=== PATIENT | male | born 1960 | race Hispanic/Latino ===

== ENCOUNTER 2018-01-14 09:37 | Inpatient (IN) | payer OTHER ==
--- OUTSIDE RECORDS SUMMARY | 2018-01-14 09:39 | XMS REPORT ---
:1960 [facility] Jelain Bradley [address] [place] [id number] Care Team Providers Name Role Phone PETRA MATA Unavailable Unavailable Problems This patient has no known problems. Allergies, Adverse Reactions, Alerts This patient has no known allergies or adverse reactions. Medications This patient has no known medications. Results Test Description Test Time Test Comments Text Results Atomic Results Result Comments Culture, Blood 2016-12-07 08:24:00 Test Item Value Reference Range Comments Culture, Blood (test code=BC) NG5 [id number] 05:49:00 Test Item Value Reference Range Comments Urinalysis (test Tenisha Yellow code=UACLR) Urinalysis (test CLEAR Clear code=UACLY) Urinalysis (test 1.024 1.002-1.036 code=SPGR) Urinalysis (test 7.0 5.0-9.0 code=JOSIE) Urinalysis (test Trace Negative code=UALEU) Urinalysis (test Negative Negative code=UANIT) Urinalysis (test Trace mg/dL Neg-Trace code=PROUADIP) Urinalysis (test Negative mg/dL Negative code=GLUCU) Urinalysis (test Trace mg/dL Negative code=KETU) Urinalysis (test 2.0 mg/dL 0.2-1.0 code=UAUROB) Urinalysis (test Positive Negative CAU code=UABIL) TION Urine Bilirubin has a high incidence of false positiveresults due to urine color interference.Interpret results in conjunction with other clinicalfindings. Urinalysis (test Negative Negative code=UABLD) Urinalysis (test 4-6 HPF 0-3 code=UARBC) Urinalysis (test 0-3 HPF 0-3 code=UAWBC) Urinalysis (test 0-3 HPF 0-3 code=UASQUAM) Urinalysis (test None Seen HPF None Seen code=UABAC) Urinalysis (test 0-3 HYALINE CAST LPF 0-3 Hyaline code=UACAST) Urine Source: Urine VoidedChemistry - [id number] 05:23:00 Test Item Value Reference Range Comments Chemistry - Lactate (test code=LACTSEP-T) 0.8 mmol/L 0.5-2.2 [id number] 05:22:00 Test Item Value Reference Range Comments Chemistry (test code=NA-T) 133 mmol/L 136-145 Chemistry (test code=K-T) 4.1 mmol/L 3.5-5.1 Chemistry (test code=CL) 89 mmol/L 98-107 Chemistry (test code=CO2) 36 mmol/L 22-29 Chemistry (test code=ANGP) 12 mmol/L 10-20 Chemistry (test code=BUN) 11 mg/dL 8.4-25.7 Chemistry (test code=CREATT) 0.90 mg/dL 0.6-1.3 Chemistry (test 88 Reference Range for Estimated code=EGFRMDRD) GFR: Greater than 90 mL/min/1.73 m2NOTE:The MDRD equation has not been validated for use with theelderly (over 70 years of age), women, patientswith serious comorbid condition or persons with extremes ofbody size, muscle mass, or nutritional status. Chemistry (test code=GLU-T) 104 mg/dL 70-105 Chemistry (test code=CA) 9.3 mg/dL 7.8-10.44 Chemistry (test code=TBILI) 2.7 mg/dL 0.2-1.2 Chemistry (test code=TP) 8.1 g/dL 6.0-8.3 Chemistry (test code=ALB) 3.5 g/dL 3.5-5.0 Chemistry (test code=GLOB) 4.6 g/dL 2.4-3.5 Chemistry (test code=AG) 0.8 g/dL 1.2-2.2 Chemistry (test code=ALP) 192 U/L 40-150 Chemistry (test code=AST) 161 U/L 5-34 Chemistry (test code=ALT) 225 U/L 0-55 [id number] 05:02:00 Test Item Value Reference Range Comments Hematology (test code=WBCT) 11.7 thou/uL 4.8-10.8 Hematology (test code=RBCT) 5.52 mill/uL 4.70-6.10 Hematology (test code=HGBT) 15.3 g/dL 14.0-18.0 Hematology (test code=HCTT) 50.1 % 42.0-52.0 Hematology (test code=MCV) 90.9 fl 80.0-94.0 Hematology (test code=MCH) 27.8 pg 27.0-31.0 Hematology (test code=MCHC) 30.6 g/dL 32.0-36.0 Hematology (test code=RDW) 13.7 % 11.5-14.5 Hematology (test code=PLTT) 244 thou/uL 130-400 Hematology (test code=MPV) 8.4 fL 7.4-10.4 Hematology (test code=%NEUT) 77.9 % 42.0-75.0 Hematology (test code=%LYMPH) 15.0 % 21.0-51.0 Hematology (test code=%MONO) 6.7 % 0.0-10.0 Hematology (test code=%EOS) 0.2 % 0.0-10.0 Hematology (test code=%BASO) 0.2 % 0.0-1.0 Hematology (test code=NEUT#) 9.1 thou/uL 1.40-6.50 Hematology (test code=LYMPH#) 1.8 thou/uL 1.20-3.40 Hematology (test code=MONO#) 0.8 thou/uL 0.11-0.59 Hematology (test code=EOS#) 0.0 thou/uL 0.0-0.7 Hematology (test code=BASO#) 0.0 thou/uL 0.0-0.2
[2018-01-14] MEDS ORDERED: ACETAMINOPHEN 500 MG TAB ONE (10:34)
[2018-01-14 11:40] LABS: Protime INR 1.68
[2018-01-14 11:42] LABS: Absolute Monocytes 0.5 K/uL (0.1-1.3); Absolute Neutrophil 6.8 K/uL (1.8-8.0); Basophils % 0.7 % (0-1.3); Eosinophils % 1.1 % (0-4.4); Hematocrit 46.3 % (39.6-49.0); Lymphocytes % 11.2 % (15.3-44.8); MCV 84.9 fL (80-100); MPV 9.3 fL (7.6-11.3); Monocytes % 6.2 % (3.3-12.3); RBC Red Blood Cell Count 5.45 M/uL (4.33-5.43)
[2018-01-14 11:49] LABS: Potassium 4.2 mEq/L (3.6-5.0)
[2018-01-14 11:55] LABS: Albumin 3.6 g/dL (3.2-5.5); Bilirubin Direct 1.3 mg/dL (0-0.2); Bilirubin Total 2.9 mg/dL (0.3-1.2); Magnesium 2.1 mg/dL (1.8-2.5); Protein, Total 7.7 g/dL (6.0-8.3)
[2018-01-14 11:58] LABS: CKMB Creatine Kinase MB 1.2 ng/ml (0.3-4.0)
--- NOTE | 2018-01-14 13:14 | RAD REPORT ---
EXAM DESCRIPTION: RAD - Chest Single View - 01/14/2018 12:10 pm CLINICAL HISTORY: Chest pain COMPARISON: June 2017 TECHNIQUE: AP portable chest image was obtained 1204 hours . FINDINGS: Motion degradation is present. Lung volumes are reduced. There is right hemidiaphragm elev ation similar to prior imaging. Assessment is limited due to the motion. However, no focal pneumonia seen. Failure and volume overload are not suspected. Heart and vasculature are normal. No measurable pleural effusion and no pneumothorax. No gross bony abnormality seen. No acute aortic findings suspec chel. IMPRESSION: Limited motion degraded study felt to be without acute cardiopulmonary finding.
--- NOTE | 2018-01-14 14:02 | RAD REPORT ---
EXAM DESCRIPTION: CT - Chest Abdomen Pelvis W Cont - 01/14/2018 1:35 pm CLINICAL HISTORY: Chest pain, back pain, upper abdominal pain, diabetic, hypertension COMPARISON: Chest films same date TECHNIQUE: Following dynamic enhancement using 100 milliliters nonionic IV contrast, axial imaging o f the chest, abdomen and pelvis was performed. Biphasic technique was utilized through the abdomen. Oral contrast was administered. All CT scans are performed using dose optimization technique as appropriate and may include automated exposure control or mA/KV adjustment according to patient size. FINDINGS: Linear stranding in the posterior right lung base is believed to be atelectasis. Patient h as chronic right hemidiaphragm elevation. No suspicious mass or infiltrate identifiable in the chest. No pleural effusion, pleural thickening or pneumothorax. No significant aortic or pulmonary arterial tree finding. Mediastinal and hilar regions show no mass or abnormal lymphadenopathy. No chest wall mass or axillary lymphadenopathy. The liver, spleen and pancreas show no suspicious findings. No gallbladder dilatation. There is at le ast one 12 millimeter sized gallstone present. Additional gallstones could be occult. Gallbladder wal l does not appear thickened or edematous. No biliary tree dilatation. Symmetric renal function is see n with no mass or hydronephrosis. No pyelonephritis or acute renal parenchymal process. No adrenal ab normality seen. Partially filled urinary bladder shows no suspicious finding. No dilated bowel loops or focal bowel wall thickening. No acute GI findings seen. No acute or destructive bone process. L5 pars defects are present. There is prominent degenerative ch riya at the L5-S1 disc level. No acute or pathologic bone process suspected. No significant vascular findings. IMPRESSION: CT chest imaging shows atelectasis abutting the elevated right hemidiaphragm. No acute o r suspicious CT chest finding. At least 1 gallstone is identified. Active gallbladder or biliary tree finding not suspected. No acute CT abdomen or pelvis finding seen.
[2018-01-14] MEDS ORDERED: NA CHLORIDE 0.9% 500 ML ONE (14:31)
[2018-01-14 14:35] LABS: Urine Blood NEGATIVE (NEG); Urine Glucose NEGATIVE (NEG); Urine Protein NEGATIVE (NEG); Urine Specific Gravity 1.015 (1.005-1.030)
--- NOTE | 2018-01-14 15:12 | RAD REPORT ---
EXAM DESCRIPTION: US - Abdomen Exam Limited - 01/14/2018 2:41 pm COMPARISON: None. FINDINGS: Exam is considered significantly limited due to patient's body habitus. Gallbladder and bi liary tree are poorly visualized. No assessment can be made of the liver. There does appear to be a 2 centimeter gallstone near the neck. Additional stones or sludge could eas edna be masked. Gallbladder wall does not appear to be thickened. Biliary tree dilatation is not suspected. IMPRESSION: Gallbladder and biliary tree assessment are considered significantly limited. There does appear to be a gallstone without gallbladder wall thickening or biliary tree dilatation.
[2018-01-14] MEDS ORDERED: METRONIDAZOLE 500mg IVPB 500 MG/100 ML BAG IV ONE (16:01)
[2018-01-14] MEDS ORDERED: CIPROFLOXACIN 400mg IV 400 MG/200 ML BAG IV ONE (16:01)
--- NOTE | 2018-01-14 16:03 | EDPHYS ---
Physician Documentation [facility] Name: Williams Toribio Age: 57 yrs Sex: Male : 1960 Arrival Date: 01/14/2018 Time: 09:43 Bed 15 Private MD: Out, [facility] ED Physician Orlando Jo HPI: 01/14 10:30 This 57 yrs old Male presents to ER via EMS with complaints of Chest Pain. cp 10:30 The patient or guardian reports chest pain that is located primarily in the substernal cp area. 10:30 Onset: today. The pain does not radiate. Associated signs and symptoms: Pertinent cp positives: episode of upper abdominal pain that radiated to back yesterday, Pertinent negatives: diaphoresis, headache, lower extremity pain, lower extremity swelling, shortness of breath, vomiting. The chest pain is described as a pressure. Duration: The patient or guardian reports a single episode, that is now resolved. Historical: - Allergies: 09:49 Tramadol HCl; aa5 - Home Meds: 10:00 Colace 100 mg oral cap 1 cap 2 times per day [Active]; spironolactone 50 mg Oral tab 2 aa5 times per day [Active]; Demadex 10 mg Oral tab 1 tab twice a day [Active]; Cymbalta 60 mg oral cpDR 1 cap once daily [Active]; Flonase 50 mcg/actuation Nasal spsn 1 spray once daily [Active]; Xarelto 20 mg oral tab once daily [Active]; cholecalciferol (vitamin D3) 1,000 unit oral cap daily [Active]; potassium chloride 10 mEq Oral cpER 2 times per day [Active]; losartan 25 mg oral tab 1 tab once daily [Active]; gabapentin 600 mg oral tab 1 tab 3 times per day [Active]; Vitamin D2 50,000 unit oral cap once wkly [Active]; clonidine HCl 0.1 mg Oral tab PRN for >180 systolic BP [Active]; acetaminophen-codeine 300-30 mg oral tab Q 6 hrs PRN [Active]; - PMHx: 09:49 CHF; Depression; Diabetes - NIDDM; Hypertension; GERD; Obesity; Anxiety; Atrial Fib; aa5 Sleep Apnea; 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 - Social history:: Smoking status: Patient/guardian denies using tobacco. - Ebola Screening: : No symptoms or risks identified at this time. ROS: 10:35 Constitutional: Positive for fever, Negative for body aches, chills, poor PO intake. cp 10:35 Eyes: Negative for injury, pain, redness, and discharge. cp 10:35 ENT: Negative for drainage from ear(s), ear pain, sore throat, difficulty swallowing, difficulty handling secretions. 10:35 Cardiovascular: Positive for chest pain, of the retrosternal, Negative for palpitations. 10:35 Respiratory: Negative for cough, shortness of breath, wheezing. 10:35 Abdomen/GI: Negative for abdominal pain, vomiting, diarrhea, constipation, black/tarry stool, rectal bleeding. 10:35 Back: Negative for radiated pain. 10:35 Skin: Negative for cellulitis, rash. 10:35 Neuro: Negative for altered mental status, headache, weakness. 10:35 All other systems are negative. Exam: 10:20 ECG was reviewed by the Attending Physician. cp 10:45 Head/Face: Normocephalic, atraumatic. Eyes: Pupils equal round and reactive to light, cp extra-ocular motions intact. Lids and lashes normal. Conjunctiva and sclera are non-icteric and not injected. Cornea within normal limits. Periorbital areas with no swelling, redness, or edema. ENT: Nares patent. No nasal discharge, no septal abnormalities noted. Tympanic membranes are normal and external auditory canals are clear. Oropharynx with no redness, swelling, or masses, exudates, or evidence of obstruction, uvula midline. Mucous membranes moist. Neck: Trachea midline, no thyromegaly or masses palpated, and no cervical lymphadenopathy. Supple, full range of motion without nuchal rigidity, or vertebral point tenderness. No Meningismus. Chest/axilla: Normal chest wall appearance and motion. Nontender with no deformity. No lesions are appreciated. 10:45 Constitutional: The patient appears in no acute distress, alert, awake, non-diaphoretic, non-toxic, well developed, well nourished, morbid obesity 10:45 Cardiovascular: Rate: normal, Rhythm: regular, Edema: mild to moderate bilateral lower legs, JVD: is not appreciated. 10:45 Respiratory: the patient does not display signs of respiratory distress, Respirations: cp normal, no use of accessory muscles, no retractions, no splinting, no tachypnea, labored breathing, is not present, Breath sounds: are clear throughout, no decreased breath sounds, no stridor, no wheezing. 10:45 Abdomen/GI: Inspection: obese Bowel sounds: active, all quadrants, Palpation: soft, in cp all quadrants, nontender, in all quadrants, rebound tenderness, is not appreciated, voluntary guarding, is not appreciated, involuntary guarding, is not appreciated. 10:45 Back: pain, is absent, ROM is normal. 10:45 Skin: cellulitis, is not appreciated, no rash present. 10:45 Neuro: Orientation: to person, place \T\ time. Mentation: lucid, able to follow commands. Vital Signs: 09:50 BP 122 / 64; Pulse 88; Resp 18 S; Temp 100.5; Pulse Ox 97% on R/A; Weight 205.93 kg aa5 (R); Height 6 ft. 2 in. (187.96 cm) (R); Pain 5/10; 12:00 BP 109 / 55; Pulse 77; Resp 18; Pulse Ox 96% on R/A; sg 13:03 BP 93 / 50; Pulse 73; Resp 17 S; Pulse Ox 88% on R/A; sg 13:05 Temp 99.0; sg 15:42 BP 99 / 60; Pulse 70; Resp 17 S; Pulse Ox 100% on 3 lpm NC; sg 16:49 BP 98 / 69; Pulse 70; Resp 17 S; Pulse Ox 100% on 3 lpm NC; sg 09:50 Body Mass Index 58.29 (205.93 kg, 187.96 cm) aa5 13:03 pt placed to NC at 3 lpm, deep breathing encouraged, pt 02 saturation returned to 94 sg percent on NC, please not BP cuff on forearm d/t pt request MDM: 10:12 Patient medically screened. cp 11:00 Differential diagnosis: abnormal EKG, acute myocardial infarction, acute pericarditis, cp cholecystitis, Cholelithiasis pancreatitis, peptic ulcer disease, pleurisy, pneumonia, pneumothorax, pulmonary embolus, stable angina, unstable angina. 15:20 Data reviewed: vital signs, nurses notes, lab test result(s), EKG, radiologic studies, cp CT scan, ultrasound. 15:20 Test interpretation: by ED physician or midlevel provider: ECG. cp 15:45 Physician consultation: Trevon Ferguson MD was contacted at 15:45, regarding consult, cp patient's condition, will consult on patient and see in morning as long as GI is available. 15:52 Physician consultation: Aishwarya Mcgregor MD was called at 15:52, was contacted at 15:52, cp regarding consult, spoke with nurse practioner. 15:56 Physician consultation: Adele Olguin MD was contacted at 15:58, regarding admission, cp to the telemetry unit. patient's condition, and will see patient in ED, shortly. 01/14 10:19 Order name: Influenza Screen (a \T\ B); Complete Time: 12:10 cp 01/14 10:19 Order name: Blood Culture Adult (2) cp 01/14 10:19 Order name: Basic Metabolic Panel; Complete Time: 12:10 cp 01/14 12:10 Interpretation: Normal except: NA 134; CL 97; GFR 78. cp 01/14 10:19 Order name: BNP; Complete Time: 12:10 cp 01/14 10:19 Order name: CBC with Diff; Complete Time: 12:10 cp 01/14 12:10 Interpretation: Normal except: RBC 5.45; RDW 15.5; BHARATHI% 80.8; LYM% 11.2. cp 01/14 10:19 Order name: Ckmb; Complete Time: 12:10 cp 01/14 10:19 Order name: CPK; Complete Time: 12:10 cp 01/14 10:19 Order name: LFT's; Complete Time: 12:10 cp 01/14 12:11 Interpretation: Normal except: SGOT 221; SGPT 240; BILIT 2.9; BILID 1.3; GLOB 4.1; A/G cp 0.9. 01/14 10:19 Order name: Magnesium; Complete Time: 12:10 cp 01/14 10:19 Order name: PT-INR; Complete Time: 12:10 cp 01/14 12:11 Interpretation: Reviewed. 01/14 10:19 Order name: Ptt, Activated; Complete Time: 12:10 cp 01/14 10:19 Order name: Troponin (emerg Dept Use Only); Complete Time: 12:10 cp 01/14 10:19 Order name: Procalcitonin; Complete Time: 12:10 cp 01/14 10:19 Order name: Lactate; Complete Time: 12:10 cp 01/14 10:19 Order name: EKG; Complete Time: 10:20 cp 01/14 10:39 Order name: Lipase; Complete Time: 12:10 cp 01/14 11:14 Order name: XRAY Chest (1 view); Complete Time: 14:06 cp 01/14 12:23 Order name: CT Chest, Abdomen, Pelvis - W/Contrast: no oral contrast; Complete Time: cp 14:06 01/14 14:22 Order name: US Abdomen Limited: RUQ/epigastric area; Complete Time: 15:17 cp 01/14 14:33 Order name: Urine Dipstick--Ancillary (enter results); Complete Time: 15:17 bd 01/14 16:48 Order name: CKMB Creatine Kinase MB EDSD 01/14 16:48 Order name: Creatine Phosphokinase EDSD 01/14 16:48 Order name: Troponin I [facility] 01/14 16:49 Order name: Echo with Doppler EDSD 01/14 16:49 Order name: Cholangiogram EDSD 01/14 10:19 Order name: Cath; Complete Time: 15:10 cp 01/14 10:19 Order name: Cardiac monitoring; Complete Time: 10:57 cp 01/14 10:19 Order name: EKG - Nurse/Tech; Complete Time: 10:57 cp 01/14 10:19 Order name: IV Saline Lock; Complete Time: 10:57 cp 01/14 10:19 Order name: Labs collected and sent; Complete Time: 10:57 cp 01/14 10:19 Order name: O2 Per Protocol; Complete Time: 10:57 cp 01/14 10:19 Order name: O2 Sat Monitoring; Complete Time: 10:57 cp 01/14 10:19 Order name: Urine Dipstick-Ancillary (obtain specimen); Complete Time: 15:10 cp 01/14 15:53 Order name: NPO; Complete Time: 15:54 cp 01/14 16:48 Order name: Dr Meche Consult EDSD 01/14 16:48 Order name: CONS Physician Consult EDSD 01/14 16:48 Order name: CONS Physician Consult EDSD 01/14 16:48 Order name: Respiratory Therapy Consult EDSD EC:20 Rate is 85 beats/min. Rhythm is regular. [place] interval is normal. QRS interval is normal. cp QT interval is normal. No ST changes noted. Interpreted by me. Reviewed by me. Administered Medications: 10:57 Drug: Tylenol 1000 mg Route: PO; sg 12:07 Follow up: Response: No adverse reaction sg 14:44 Drug: NS 0.9% 250 ml Route: IV; Rate: bolus; Site: right forearm; sg 15:43 Follow up: Response: No adverse reaction; IV Status: Completed infusion; IV Intake: sg 250ml 16:00 Drug: Ciprofloxacin 400 mg Volume: 200 ml; Route: IVPB; Infused Over: 60 mins; Site: sg right forearm; 17:41 Follow up: Response: No adverse reaction; IV Status: Completed infusion sg 16:00 Drug: metroNIDAZOLE 500 mg Volume: 100 ml; Route: IVPB; Infused Over: 30 mins; Site: sg right forearm; Point of Care Testing: Blood Glucose: 11:04 Blood Glucose: 88 mg/dL; sg Ranges: Critical Glucose Levels:Adult <50 mg/dl or >400 mg/dl <40 mg/dl or >180 mg/dl Disposition: 19:21 Co-signature as Attending Physician, Orlando Jo MD I agree with the assessment and kdr plan of care. Disposition: 01/14/18 16:02 Hospitalization ordered by Kyle Yost for Inpatient Admission. Preliminary diagnosis are Chest pain, unspecified, Cholecystitis. - Bed requested for Telemetry/MedSurg (observation). - Status is Inpatient Admission. sg - Condition is Stable. - Problem is new. - Symptoms have improved. UTI on Admission? No Signatures: Dispatcher [employer] EDSD Katherine Roth Steven, TAYO RN sg Orlando Jo MD MD [facility] Araya RN RN aa5 Richardson Downey PA PA cp Corrections: (The following items were deleted from the chart) 16:56 16:02 Hospitalization Ordered by Kyle Yost DO for Inpatient Admission. Preliminary bd diagnosis is Chest pain, unspecified; Cholelithiasis. Bed requested for Telemetry/MedSurg (observation). Status is Inpatient Admission. Condition is Stable. Problem is new. Symptoms have improved. UTI on Admission? No. cp 17:19 16:56 01/14/2018 16:02 Hospitalization Ordered by Kyle Yost DO for Inpatient cp Admission. Preliminary diagnosis is Chest pain, unspecified; Cholelithiasis. Bed requested for Telemetry/MedSurg (observation). Status is Inpatient Admission. Condition is Stable. Problem is new. Symptoms have improved. UTI on Admission? No. bd 17:21 17:19 01/14/2018 16:02 Hospitalization Ordered by Kyle Yost DO for Inpatient sg Admission. Preliminary diagnosis is Chest pain, unspecified; Cholecystitis. Bed requested for Telemetry/MedSurg (observation). Status is Inpatient Admission. Condition is Stable. Problem is new. Symptoms have improved. UTI on Admission? No. cp 18:26 17:21 01/14/2018 16:02 Hospitalization Ordered by Kyle Yost DO for Inpatient sg Admission. Preliminary diagnosis is Chest pain, unspecified; Cholecystitis. Bed requested for Telemetry/MedSurg (observation). Status is Inpatient Admission. Condition is Stable. Problem is new. Symptoms have improved. UTI on Admission? No. sg
--- NOTE | 2018-01-14 16:03 | ER ---
Nurse's Notes [facility] Name: Williams Toribio Age: 57 yrs Sex: Male : 1960 Arrival Date: 01/14/2018 Time: 09:43 Bed 15 Private MD: Out, [facility] Diagnosis: Chest pain, unspecified;Cholecystitis Presentation: 01/14 09:44 Presenting complaint: Patient states: mid-sternal chest pain and back pain that began aa5 last night. Pt denies SOB, denies N/V, denies cough. Pt reports fever today. Transition of care: [facility] (For Rehab). Onset of symptoms was December 2017. Risk Assessment: Do you want to hurt yourself or someone else? Patient reports no desire to harm self or others. Initial Sepsis Screen: Does the patient meet any 2 criteria? Temp <36.0*C (96.8*F)) or > 38.3*C (100.4*F). Does the patient have a suspected source of infection? No. Patient's initial sepsis screen is negative. Care prior to arrival: None. 09:44 Method Of Arrival: EMS: [facility] aa5 09:44 Acuity: NOLAN 3 aa5 Historical: - Allergies: 09:49 Tramadol HCl; aa5 - Home Meds: 10:00 Colace 100 mg oral cap 1 cap 2 times per day [Active]; spironolactone 50 mg Oral tab 2 aa5 times per day [Active]; Demadex 10 mg Oral tab 1 tab twice a day [Active]; Cymbalta 60 mg oral cpDR 1 cap once daily [Active]; Flonase 50 mcg/actuation Nasal spsn 1 spray once daily [Active]; Xarelto 20 mg oral tab once daily [Active]; cholecalciferol (vitamin D3) 1,000 unit oral cap daily [Active]; potassium chloride 10 mEq Oral cpER 2 times per day [Active]; losartan 25 mg oral tab 1 tab once daily [Active]; gabapentin 600 mg oral tab 1 tab 3 times per day [Active]; Vitamin D2 50,000 unit oral cap once wkly [Active]; clonidine HCl 0.1 mg Oral tab PRN for >180 systolic BP [Active]; acetaminophen-codeine 300-30 mg oral tab Q 6 hrs PRN [Active]; - PMHx: 09:49 CHF; Depression; Diabetes - NIDDM; Hypertension; GERD; Obesity; Anxiety; Atrial Fib; aa5 Sleep Apnea; 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 - Social history:: Smoking status: Patient/guardian denies using tobacco. - Ebola Screening: : No symptoms or risks identified at this time. Screenin:00 Abuse screen: Denies threats or abuse. Denies injuries from another. Nutritional sg screening: No deficits noted. Tuberculosis screening: No symptoms or risk factors identified. Never had TB. Fall Risk None identified. Assessment: 09:50 General: Appears in no apparent distress. well groomed, well developed, well nourished, sg Behavior is calm, cooperative, appropriate for age. Pain: Complains of pain in chest Pain does not radiate. Quality of pain is described as aching, Aggravated by deep breathing. Pain: Pain began gradually, 2-3 days ago. Neuro: Level of Consciousness is awake, alert, obeys commands, Oriented to person, place, time, Speech is normal, Facial symmetry appears normal. Cardiovascular: Heart tones S1 S2 present Capillary refill is brisk in bilateral fingers Patient's skin is warm and dry. Chest pain. Respiratory: Airway is patent Respiratory effort is even, unlabored, Respiratory pattern is regular, symmetrical, Breath sounds are coarse Breath sounds are diminished in right lower lobe and right posterior lower lobe. GI: Abdomen is round non-distended, Bowel sounds present X 4 quads. Patient currently denies nausea, pain, vomiting. : No signs and/or symptoms were reported regarding the genitourinary system. EENT: No signs and/or symptoms were reported regarding the EENT system. Derm: Skin is pink, warm \T\ dry. Musculoskeletal: Circulation, motion, and sensation intact. Range of motion: limited in left wrist, left hand, right foot (contractured per NH staff). 11:12 Reassessment: medical laboratory assistant at bedside for lab draw on pt, proving to be a difficult stick. sg awaiting blood samples at this time. 12:00 Reassessment: xray at bedside at this time. sg 13:00 Reassessment: Patient appears in no apparent distress at this time. Patient and/or sg family updated on plan of care and expected duration. Pain level reassessed. Patient is alert, oriented x 3, equal unlabored respirations, skin warm/dry/pink. Patient states symptoms have not improved. 14:00 Reassessment: Patient appears in no apparent distress at this time. Patient and/or sg family updated on plan of care and expected duration. Pain level reassessed. Patient is alert, oriented x 3, equal unlabored respirations, skin warm/dry/pink. pt reports the bed is causing him pain in his buttocks and back, repositioned, pt reports a little better. 16:00 Reassessment: Patient appears in no apparent distress at this time. Patient and/or sg family updated on plan of care and expected duration. Pain level reassessed. Patient is alert, oriented x 3, equal unlabored respirations, skin warm/dry/pink. pt awaiting / for admission, no new orders received at this time, will continue to monitor, awaing bed from warehouse sorter for transfer from EMS stretcher to floor bed for increased comfort' Patient states symptoms have not improved. 17:22 Reassessment: Patient appears in no apparent distress at this time. Patient and/or sg family updated on plan of care and expected duration. Pain level reassessed. Patient is alert, oriented x 3, equal unlabored respirations, skin warm/dry/pink. pt transferred from ER stretcher to bed, pt reports bed feels better than ER stretcher, a waffle mattress was applied, awaiting to call report to Nurse for room 430. Vital Signs: 09:50 BP 122 / 64; Pulse 88; Resp 18 S; Temp 100.5; Pulse Ox 97% on R/A; Weight 205.93 kg aa5 (R); Height 6 ft. 2 in. (187.96 cm) (R); Pain 5/10; 12:00 BP 109 / 55; Pulse 77; Resp 18; Pulse Ox 96% on R/A; sg 13:03 BP 93 / 50; Pulse 73; Resp 17 S; Pulse Ox 88% on R/A; sg 13:05 Temp 99.0; sg 15:42 BP 99 / 60; Pulse 70; Resp 17 S; Pulse Ox 100% on 3 lpm NC; sg 16:49 BP 98 / 69; Pulse 70; Resp 17 S; Pulse Ox 100% on 3 lpm NC; sg 09:50 Body Mass Index 58.29 (205.93 kg, 187.96 cm) aa5 13:03 pt placed to NC at 3 lpm, deep breathing encouraged, pt 02 saturation returned to 94 sg percent on NC, please not BP cuff on forearm d/t pt request ED Course: 09:43 Patient arrived in ED. hb 09:44 Arm band placed on Patient placed in an exam room, on a stretcher. aa5 09:45 Triage completed. aa5 10:11 Out, of [facility] is Private Physician. sb2 10:11 Richardson Downey PA is PHCP. cp 10:11 Orlando Jo MD is Attending Physician. cp 10:24 EKG done, by computer engineering technologist. reviewed by Richardson MORTENSEN. sm3 10:40 First set of blood cultures drawn by me. sg 10:55 No provider procedures requiring assistance completed. Second set of blood cultures sg drawn by me. Inserted saline lock: 20 gauge in right forearm, using aseptic technique. Blood collected. Patient maintains SpO2 saturation greater than 95% on room air. 10:56 Jose A Blue, RN is Primary Nurse. sg 12:10 XRAY Chest (1 view) In Process Unspecified. EDMS 13:22 CT completed. Patient tolerated procedure well. Patient moved to CT via stretcher. Patient moved back from CT. 13:35 CT Chest, Abdomen, Pelvis - W/Contrast: no oral contrast In Process Unspecified. EDMS 14:40 US Abdomen Limited: RUQ/epigastric area In Process Unspecified. EDMS 16:01 Kyle Yost DO is Hospitalizing Provider. cp 18:20 Patient has correct armband on for positive identification. poiser balance on. Pulse sg ox on. NIBP on. Head of bed elevated. 18:25 Patient admitted, IV remains in place. intact, No redness/swelling at site. sg Administered Medications: 10:57 Drug: Tylenol 1000 mg Route: PO; sg 12:07 Follow up: Response: No adverse reaction sg 14:44 Drug: NS 0.9% 250 ml Route: IV; Rate: bolus; Site: right forearm; sg 15:43 Follow up: Response: No adverse reaction; IV Status: Completed infusion; IV Intake: sg 250ml 16:00 Drug: Ciprofloxacin 400 mg Volume: 200 ml; Route: IVPB; Infused Over: 60 mins; Site: sg right forearm; 17:41 Follow up: Response: No adverse reaction; IV Status: Completed infusion sg 16:00 Drug: metroNIDAZOLE 500 mg Volume: 100 ml; Route: IVPB; Infused Over: 30 mins; Site: sg right forearm; Point of Care Testing: Blood Glucose: 11:04 Blood Glucose: 88 mg/dL; sg Ranges: Intake: 15:43 IV: 250ml; Total: 250ml. sg Outcome: 16:02 Decision to Hospitalize by Provider. cp 18:25 Admitted to Tele accompanied by nurse, via stretcher, room 430, with chart, Report sg called to Vanda RN 18:25 Condition: stable 18:25 Instructed on the need for admit, safety practices, Demonstrated understanding of instructions. 18:26 Patient left the ED. sg Signatures: Dispatcher [employer] EDJose A Sánchez RN RN Lucie Merchant Audri RN RN aa5 Richardson Downey PA PA Ethel Fuentes, RN RN Mckenzie Burgess sb2 Dara Dhaliwal 3
[2018-01-14] MEDS ORDERED: SODIUM CHLORIDE 0.9% 10ML INJ IV PRN (16:37)
[2018-01-14] MEDS ORDERED: ONDANSETRON 4 MG/2 ML VIAL IV PRN (16:37)
[2018-01-14] MEDS ORDERED: ACETAMINOPHEN 650MG/RECT SUPP PR PRN (16:37)
[2018-01-14] MEDS ORDERED: ACETAMINOPHEN 500 MG TAB PO PRN (16:37)
[2018-01-14] MEDS ORDERED: IPRATROPIUM BROM 0.5MG/2.5ML NEB PRN (16:37)
[2018-01-14] MEDS ORDERED: Morphine 2 MG/2 ML SYR IV PRN (16:48)
[2018-01-14] MEDS ORDERED: D50W 25 GM/50 ML SYRINGE IV PRN (17:03)
[2018-01-14] MEDS ORDERED: GLUCAGON 1 MG/VIAL IM PRN (17:03)
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
[2018-01-14] MEDS: FUROSEMIDE 20 MG/ 2ML VIAL IV SCH (19:03)
[2018-01-14] MEDS: INSULIN -REGULAR HUMAN 50 UNIT/0.5 ML ML SQ SCH (21:00)
[2018-01-14] MEDS ORDERED: DULOXETINE 30 MG CAP PO SCH (21:00)
[2018-01-15 00:33] LABS: CKMB Creatine Kinase MB 1.3 ng/ml (0.3-4.0)
[2018-01-15] MEDS: METRONIDAZOLE 500mg IVPB 500 MG/100 ML BAG IV SCH ×2 (03:34→09:52)
[2018-01-15 05:00] LABS: Protime INR 1.38
[2018-01-15 05:03] LABS: Absolute Lymphocytes (CBC) 1.3 K/uL (0.7-4.9); Absolute Monocytes 0.7 K/uL (0.1-1.3); Absolute Neutrophil 6.2 K/uL (1.8-8.0); Basophils % 0.8 % (0-1.3); Eosinophils % 0.7 % (0-4.4); Lymphocytes % 15.7 % (15.3-44.8); MCH 27.8 pg (27.0-35.0); MCV 85.1 fL (80-100); MPV 9.1 fL (7.6-11.3); Monocytes % 8.9 % (3.3-12.3); RBC Red Blood Cell Count 5.28 M/uL (4.33-5.43)
[2018-01-15 05:48] LABS: Albumin 3.5 g/dL (3.2-5.5); Bilirubin Total 1.9 mg/dL (0.3-1.2); Potassium 3.7 mEq/L (3.6-5.0); Protein, Total 7.6 g/dL (6.0-8.3); Thyroid Stimulating Hormone 1.01 uIU/mL (0.34-5.60)
--- NOTE | 2018-01-15 06:59 | EKG ---
Test Date: 2018-01-14 Test Time: 10:13:36 Software Testing Specialist: MOLLY MEASUREMENT RESULTS: Intervals: Rate: 85 TX: 132 QRSD: 88 QT: 358 QTc: 426 [place]: P: 29 TX: 132 QRS: 0 T: -2 INTERPRETIVE STATEMENTS: Normal sinus rhythm Normal ECG Compared to ECG 07/01/2017 07:45:08 No significant changes Electronically Signed On 01-15-18 06:55:45 CDT by Anderson Perales
[2018-01-15] MEDS: INSULIN -REGULAR HUMAN 50 UNIT/0.5 ML ML SQ SCH ×2 (07:30→11:30)
[2018-01-15 08:42] VITALS: O2SAT 89
[2018-01-15 08:53] VITALS: BMI 61.7
[2018-01-15] MEDS ORDERED: KCL 20 MEQ/100 mL IVPB 20 MEQ/100 ML BAG IV SCH (09:00)
[2018-01-15] MEDS ORDERED: PANTOPRAZOLE 40 MG INJ IVP SCH (09:00)
[2018-01-15] MEDS ORDERED: CIPROFLOXACIN 400mg IV 400 MG/200 ML BAG IV SCH (09:00)
[2018-01-15] MEDS ORDERED: LOSARTAN POTASSIUM 50 MG TABLET PO SCH (09:00)
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
[2018-01-15 09:45] LABS: A1c Component 0.52 mg/dL; Hemoglobin A1c 5.3 % (4-6.0)
[2018-01-15] MEDS: FUROSEMIDE 20 MG/ 2ML VIAL IV SCH (09:53)
[2018-01-15] MEDS ORDERED: NA CHLORIDE 0.9% 250 ML ONE (10:01)
--- NOTE | 2018-01-15 11:01 | P.DS ---
Admission Date: 01/14/18 Discharge Date: 01/15/18 Primary Care Provider: [facility] Disposition: TRANSFER TO [facility] Discharge Condition: GOOD Reason for Admission: Chest pain, abdominal pain Consultations: Cardiology-Dr. Perales Surgery-Dr. Ferguson GI-Dr. Mcgregor Procedures: CT scan/ABUS: Cholelithiasis noted. Stone 12 mm. - Problems (1) Abdominal pain Onset Date: 01/15/18 Current Visit: Yes Status: Acute Qualifiers: Abdominal location: epigastric Qualified Code(s): R10.13 - Epigastric pain (2) Cholecystitis with cholelithiasis Onset Date: 01/15/18 Current Visit: Yes Status: Acute Qualifiers: Cholelithiasis location: gallbladder Cholecystitis acuity: acute and chronic Biliary obstruction: without biliary obstruction Qualified Code(s): K80.12 - Calculus of gallbladder with acute and chronic cholecystitis without obstruction (3) Atrial fibrillation Onset Date: 01/15/18 Current Visit: Yes Status: Chronic Qualifiers: Atrial fibrillation type: chronic Qualified Code(s): I48.2 - Chronic atrial fibrillation (4) Obesity hypoventilation syndrome Onset Date: 01/15/18 Current Visit: Yes Status: Chronic (5) Depression with anxiety Onset Date: 01/15/18 Current Visit: Yes Status: Chronic (6) Diabetic neuropathy Onset Date: 01/15/18 Current Visit: Yes Status: Chronic Qualifiers: Diabetes mellitus type: type 2 Diabetes mellitus complication detail: diabetic polyneuropathy Qualified Code(s): E11.42 - Type 2 diabetes mellitus with diabetic polyneuropathy (7) Hypertension Onset Date: 01/15/18 Current Visit: Yes Status: Chronic Qualifiers: Hypertension type: essential hypertension Qualified Code(s): I10 - Essential (primary) hypertension (8) Chronic anticoagulation Onset Date: 01/15/18 Current Visit: Yes Status: Chronic (9) CHF (congestive heart failure) Onset Date: 01/15/18 Current Visit: Yes Status: Chronic (10) Morbid obesity Onset Date: 01/15/18 Current Visit: Yes Status: Chronic (11) PILI (obstructive sleep apnea) Onset Date: 01/15/18 Current Visit: Yes Status: Chronic (12) GERD (gastroesophageal reflux disease) Onset Date: 01/15/18 Current Visit: Yes Status: Suspected Qualifiers: Esophagitis presence: esophagitis presence not specified Qualified Code(s) : K21.9 - Gastro-esophageal reflux disease without esophagitis (13) Elevated liver function tests Current Visit: Yes Status: Acute (14) Hyperbilirubinemia Current Visit: Yes Status: Acute (15) Lymphedema Current Visit: No Status: Chronic (16) Atelectasis Current Visit: Yes Status: Acute (17) Elevated hemidiaphragm Current Visit: Yes Status: Acute Brief History of Present Illness: 57-year-old male presented with chest pain and abdominal pain. [facility] a [facility]. Patient reported chest pain since yesterday. Chest pain mainly to the sternal and epigastric region. This persisted. Patient reported some increasing at the epigastric pain today. Patient denied any significant vomiting. Some nausea noted. He rated the pain about a 8/10. Pain radiated to the right shoulder. He did have a mild temperature. Patient came to the ER for evaluation In the ER patient evaluated. Initial white count 8.5, hemoglobin 15. Sodium 134, potassium 4.2, BUN of 97, creatinine within normal range. AST 221, ALT 240. Initial troponin unremarkable. Abdominal ultrasound was difficult due to his weight. Gallstone was noted. 2 cm stone at the neck of the gallbladder identified. CT scan confirmed gallstone. No dilation appeared. Due to nature of his symptoms the patient was admitted for evaluation. Surgery and GI were consulted in the ER. Patient will be seen by them. Patient with multiple medical problems including obstructive sleep apnea, hypoventilation obesity syndrome, GERD, depression, CHF, diabetes, hypertension , history of atrial fibrillation and multiple physical disabilities. Vital Signs/Physical Exam: Temp Pulse Resp BP Pulse Ox 98.1 F 76 20 113/59 L 91 01/15/18 09:44 01/15/18 09:53 01/15/18 09:44 01/15/18 09:53 01/15/18 09:44 General: Alert, In no apparent distress, Oriented x3, Cooperative HEENT: Atraumatic Neck: Supple Respiratory: Clear to auscultation bilaterally, Normal air movement Cardiovascular: Normal pulses, Regular rate/rhythm Gastrointestinal: Normal bowel sounds, Soft and benign, Non-distended, No masses , No rebound, No guarding, Other (Patient morbidly obese.), Tenderness (Minimal pain to the right upper quadrant region.) Musculoskeletal: No erythema, No tenderness, No warmth Integumentary: No warmth, No cyanosis, Tenderness/swelling (Lymphedema noted to the lower extremities. Chronic venous changes to the lower extremity noted. Nonpitting edema noted.) Neurological: Normal speech, Normal strength at 5/5 x4 extr, Normal tone, Normal affect Laboratory Data at Discharge: WBC 8.4 K/uL (4.3-10.9) 01/15/18 04:26 Hgb 14.7 g/dL (13.6-17.9) 01/15/18 04:26 Hct 45.0 % (39.6-49.0) 01/15/18 04:26 Plt Count 294 K/uL (152-406) 01/15/18 04:26 PT 16.3 SECONDS (9.5-12.5) H 01/15/18 04:26 INR 1.38 01/15/18 04:26 APTT 35.8 SECONDS (24.3-36.9) 01/15/18 04:26 Sodium 136 mEq/L (135-145) 01/15/18 04:26 Potassium 3.7 mEq/L (3.6-5.0) 01/15/18 04:26 BUN 11 mg/dL (6-20) 01/15/18 04:26 Creatinine 0.99 mg/dL (0.61-1.24) 01/15/18 04:26 Glucose 94 mg/dL (65-120) 01/15/18 04:26 Magnesium 2.0 mg/dL (1.8-2.5) 01/15/18 04:26 Total Bilirubin 1.9 mg/dL (0.3-1.2) H 01/15/18 04:26 AST 120 IU/L (10-42) H D 01/15/18 04:26 ALT 183 IU/L (10-60) H 01/15/18 04:26 Alkaline Phosphatase 109 IU/L (42-121) 01/15/18 04:26 Troponin I < 0.03 ng/mL (<0.03) 01/15/18 06:55 B-Natriuretic Peptide 52 pg/ml (<=100) 01/14/18 11:16 Triglycerides 94 mg/dL (35-160) 01/15/18 04:26 Cholesterol 172 mg/dL (<200) 01/15/18 04:26 HDL Cholesterol 43 mg/dL (27-67) 01/15/18 04:26 Cholesterol/HDL Ratio 4.00 01/15/18 04:26 Lipase 20 U/L (22-51) L 01/14/18 11:16 Home Medications: Acetaminophen [Tylenol] 650 mg PO Q6HP PRN 07/01/17 Codeine/APAP [Tylenol #3*] 2 tab PO Q6HP PRN 07/01/17 Ergocalciferol (Vitamin D2) [Vitamin D2] 50,000 unit PO EVERY 7TH DAY 07/01/17 Gabapentin [Neurontin] 600 mg PO BID 07/01/17 Omeprazole Magnesium [Prilosec Otc] 20 mg PO DAILY 07/01/17 Potassium Chloride [Micro-K] 10 meq PO BID 07/01/17 Rivaroxaban [Xarelto*] 20 mg PO DAILY 07/01/17 Spironolactone [Aldactone] 50 mg PO BID 07/01/17 Torsemide [Demadex*] 10 mg PO DAILY 07/01/17 Fluticasone [Flonase 50MCG Nasal Delta*] 1 sprays MARY ELLEN BID #1 btl 07/05/17 Levofloxacin [Levaquin*] 500 mg PO DAILY #7 tab 07/05/17 Patient Discharge Instructions: 1. Patient be transferred to [facility] for higher level of care requiring ERCP and surgery. Patient found to have cholecystitis with cholelithiasis. Patient with multiple comorbidities including morbid obesity wean over 430 lb, obesity hypoventilation syndrome, obstructive sleep apnea, atrial fibrillation on chronic anti coagulation therapy , hypertension, neuropathy pain. 2. Continue with current medications. Xarelto currently on hold for anticipation for ERCP and surgery. 3. [facility] Diet: NPO Activity: Fall precautions Time spent managing pt's care (in minutes): 55
[2018-01-15] MEDS ORDERED: GLUCAGON 1 MG/VIAL IM PRN (11:33)
[2018-01-15] MEDS ORDERED: D50W 25 GM/50 ML SYRINGE IV PRN (11:33)
[2018-01-15] MEDS ORDERED: INSULIN -REGULAR HUMAN 50 UNIT/0.5 ML ML SQ SCH (12:00)
--- NOTE | 2018-01-15 12:26 | CON ---
Date of Consultation: 01/15/[address] Yost on 01/14/2018. I saw the patient on 01/15/2018. Reason For Consultation: Cardiac clearance for gallbladder surgery and atypical chest pain. History Of Present Illness: Mr. Toribio is a 57-year-old [place] male, who lives in a nursing [facility]. He weighs 454 pounds. Has severe morbid obesity. Does not have any history of coronary artery disease, but has a history of atrial fibrillation for which he takes Xarelto. He is in normal rhythm now. He has a history of diabetes, sleep apnea, gastroesophageal reflux disease, and depression. C dk in with right-sided chest pain. He was found to have gallstones and elevated liver function test s including AST, ALT, and bilirubin, but has normal alkaline phosphatase. He is not obstructed. The re is a possible plan for surgery. I believe the last dose of Xarelto was yesterday. Past Medical History: As stated above. Allergies: TRAMADOL. Review of Systems: Negative. Social History: Positive for being in a senior living resident. Family History: Noncontributory. Medications: At home include Xarelto, potassium, Demadex, aldactone, Neurontin, and multiple pain nv dications. Physical Examination: General: He weighs 454 pounds, but no acute distress Vital signs: Stable, sinus rhythm, afebrile. HEENT: Negative. Neck: Supple. Chest: Clear. Cardiac: Revealed normal rhythm and rate. No murmurs, gallops, or rubs. Abdomen: Obese. Extremities: Revealed trace edema and venous insufficiency. Diagnostic Data: As stated earlier including normal chest x-ray, normal EKG. Echocardiogram in 2016 was normal. Impression: 1.Atypical chest pain secondary to gallstone. 2.Cholelithiasis with elevated liver function enzymes. 3.Depression. 4.Diabetes. 5.Atrial fibrillation, in normal rhythm, on Xarelto. 6.Gastroesophageal reflux disease. 7.Morbid obesity. 8.assisted resident. Plan: I would agree with the present plan. There is another echocardiogram pending. I doubt this w ill show anything new. He is cleared to undergo surgery. He is to be off Xarelto for 48 hours. His other problems are stable at this moment. NB/MODL Voice ID: [id number] Report ID: [id number]
--- NOTE | 2018-01-15 15:01 | CON ---
Date of Consultation: 01/14/2018 Reason: Abdominal pain, cholelithiasis, and elevated liver function tests. History Of Present Illness: The patient is a 57-year-old gentleman, who presented with lower chest a nd upper abdominal pain mostly on the right side. It started yesterday. He had increasing pain in t he epigastrium. No significant vomiting. He has nausea. He is morbidly obese. On admission, he redd d elevated LFTs. He is too big for MRCP. CAT scan did confirm a gallstone as well as the ultrasound . The patient was evaluated by the anesthesia team and found to be very-very high risk for any proce dure at this facility. He is currently without any pain. He is in no acute distress. No sore throa t, runny nose, cough, headaches, or dizziness. No chest pain currently. Review of Systems: Otherwise unremarkable. Past Medical History: Hypertension, diabetes, CHF, depression, morbid obesity, sleep apnea obstructi ve, history of AFib, hypoventilation obesity syndrome, GERD, and diabetic neuropathy. Past Surgical History: Hernia repair. Allergies: TRAMADOL. Social History: He does not currently smoke. Does not drink alcohol. Stays in the alf. Family History: Significant for hypertension. Physical Examination: Vital Signs: His BMI is 61.8. He is 5 feet 11 inches with 443 pounds. His vital signs are otherwis e stable. He is afebrile General: He is awake, alert, orient x3. Head and Neck: No evidence of icterus. Cranial nerves 2 through 12 are grossly within normal limits . No neck masses. No JVD. Throat clear. Neck is supple. Chest: Clear. Heart: S1, S2. Abdomen: Soft, nondistended, nontender. Positive bowel sounds. Extremities: Neurovascularly intact. Neuro: Nonfocal. Laboratory Data: White count is 8.4 with a slight left shift. INR is 1.38. Chemistry shows AST of 120, ALT of 183, and total bilirubin 1.9. His lipase is normal. His procalcitonin is 0.1. CT of e abdomen and pelvis well as well ultrasound reviewed. Assessment: Morbid obesity, abdominal pain, cholelithiasis, and elevated liver function tests. Recommendation: The patient requires large OR bed, which we do not have and a team of anesthesiologi st, which our team does not feel comfortable putting this patient to sleep and does not think he woul d do well with a MAC for ERCP and he does need an ERCP prior to surgical intervention. Therefore, e plan of care was discussed in detail with Dr. Yost and we have transfered the patient to a [facility] facility for definitive diagnosis and treatment. Again, plan of care was discussed with Dr. Yost. HEATHER/AMANDA Voice ID: [id number] Report ID: [id number]
--- NOTE | 2018-01-15 17:58 | ECHO ---
HEIGHT: 5 ft 11 in WEIGHT: 443 lb 0 oz DATE OF STUDY: 01/15/[address]: Kyle Yost DO 2-DIMENSIONAL: YES M.MODE: YES DOPPLER: YES COLOR FLOW: YES TDS: YES PORTABLE: DEFINITY: BUBBLE STUDY: DIAGNOSIS: CONGESTIVE HEART FAILURE/ ATRIAL FIBRILLATION CARDIAC HISTORY: CATHERIZATION: NO SURGERY: NO PROSTHETIC VALVE: NO PACEMAKER: NO MEASUREMENTS (cm) DIASTOLIC (NORMALS) SYSTOLIC (NORMALS) IVSd 1.3 (0.6-1.2) LA Diam (1.9-4.0) LVEF 68% LVIDd 3.5 (3.5-5.7) LVIDs 2.2 (2.0-3.5) %FS 37% LVPWd 1.6 (0.6-1.2) Ao Diam 3.0 (2.0-3.7) 2 DIMENSIONAL ASSESSMENT: RIGHT ATRIUM: NORMAL LEFT ATRIUM: NORMAL RIGHT VENTRICLE: NORMAL LEFT VENTRICLE: NORMAL TRICUSPID VALVE: NORMAL MITRAL VALVE: NORMAL PULMONIC VALVE: NORMAL AORTIC VALVE: NORMAL PERICARDIAL EFFUSION: NONE AORTIC ROOT: NORMAL LEFT VENTRICULAR WALL MOTION: PARADOXICAL SEPTUM DOPPLER/COLOR FLOW: MILD TRICUSPID REGURGITATION. NORMAL RIGHT VENTRICULAR SYSTOLIC PRESSURE. COMMENTS: TECHNICALLY DIFFICULT STUDY. MILD TRICUSPID REGURGITATION. NORMAL RIGHT VENTRICULAR SYSTOLIC PRESSURE. NORMAL LEFT VENTRICULAR EJECTION FRACTION AND SIZE. TECHNOLOGIST: FRANNIE HOOKER
[2018-01-15 18:11] VITALS: BP 103/60; TEMP 97.4
[2018-01-15] MEDS ORDERED: FLUTICASONE 50MCG NASAL SPRAY NAS SCH (21:00)
== END 2018-01-15 16:57 | disposition short-term general hospital (02) | DRG 445 ==
LOC: ER 09:37 → ERHOLD 16:37 → 4TH 18:12
PROVIDERS: ADMIT Family Medicine; ATTEND Family Medicine
DX: K80.00 Calculus of gallbladder with acute cholecystitis without obstruction (principal); E66.2 Morbid (severe) obesity with alveolar hypoventilation; Z68.44 Body mass index [BMI] 60.0-69.9, adult; J98.11 Atelectasis; G47.33 Obstructive sleep apnea (adult) (pediatric); K21.9 Gastro-esophageal reflux disease without esophagitis; I50.9 Heart failure, unspecified; E11.9 Type 2 diabetes mellitus without complications; I10 Essential (primary) hypertension; I48.2 Chronic atrial fibrillation; F41.8 Other specified anxiety disorders; E11.40 Type 2 diabetes mellitus with diabetic neuropathy, unspecified; I89.0 Lymphedema, not elsewhere classified; Z79.01 Long term (current) use of anticoagulants
CPT/HCPCS: 36415; 71045; 71260; 74177; 76705; 80048; 80053; 80061; 80076; 81003; 82550; 82553; 82962; 83036; 83605; 83690; 83735; 83880; 84145; 84439; 84443; 84484; 85025; 85610; 85730; 87040; 87804; 93005; 93306; 96365; 96366; 96367; 96375; 99285; C9113; J0744; J1940; J2405; Q9967